=== PATIENT | female | born 1935 | race Caucasian/White ===

== ENCOUNTER 2016-09-21 13:54 | Outpatient (RCR) | payer MEDICARE ==
[2016-09-21] VITALS (8 sets, daily range): BP systolic 154–183; BP diastolic 74–90; PULSE 82–92; TEMP 97.3–98.7
[~2016-09-21] VITALS: Ht 157.5 cm; Wt 65.9 kg
[2016-09-21] MEDS ORDERED: MILK OF MA400 MG/52 PO (16:23)
[2016-09-21] MEDS ORDERED: ALMACONE 360 M360 ML PO (16:34)
[2016-09-21] MEDS ORDERED: GENTLE LAXATIVE10 MG RC (16:35)
[2016-09-21] MEDS ORDERED: PREDNISONE 5MG5 MG PO (16:37)
[2016-09-21] MEDS ORDERED: TYLENOL SU650 MG/SUP RC (16:37)
[2016-09-21] MEDS ORDERED: IMODIUM 2MG CAPS2 MG PO (16:38)
[2016-09-21] MEDS ORDERED: TYLENOL 500MG500 MG PO (16:39)
[2016-09-21] MEDS ORDERED: TESSALON PERLE200 MG PO (16:39)
[2016-09-21] MEDS ORDERED: ALBUTEROL0.83 MG/ML IH (16:40)
== END 2016-09-21 19:30 | disposition home or self-care (01) ==
LOC: EUO 13:54 → EDSTATUS 14:00 → EUO 19:30
DX: D64.89 Other specified anemias (principal)
CPT/HCPCS: J7050; P9016